=== PATIENT | female | born 1990 | race Caucasian/White ===

== ENCOUNTER 2023-02-11 21:10 | Emergency (ER) | payer OTHER ==
[~2023-02-11] VITALS: Ht 152.4 cm; Wt 79.4 kg
[2023-02-12 00:30] VITALS: BP 141/85
== END 2023-02-12 01:27 | disposition home or self-care (01) ==
LOC: ER 21:10
DX: T14.8XXA Other injury of unspecified body region, initial encounter (principal); Z88.2 Allergy status to sulfonamides; Z91.013 Allergy to seafood; Z88.5 Allergy status to narcotic agent; Z88.0 Allergy status to penicillin; Z88.4 Allergy status to anesthetic agent; Z88.8 Allergy status to other drugs, medicaments and biological substances; V89.2XXA Person injured in unspecified motor-vehicle accident, traffic, initial encounter
CPT/HCPCS: 99283; A9270

== ENCOUNTER → 2024-07-14 | Outpatient (CLI) | payer OTHER ==
[2024-07-14 20:49] LABS: Candida Group, PCR NOT DETECTED (NOT DETECT)
[2024-07-14 20:50] LABS: Bacterial Vaginosis PCR Positive (NEGATIVE); Candida glabrata-krusei, PCR DETECTED (NOT DETECT)
== END ==
LOC: LAB SHORT 17:57 → LAB 17:57
PROVIDERS: Obstetrics & Gynecology
DX: N89.8 Other specified noninflammatory disorders of vagina (principal)
CPT/HCPCS: 87481; 87661; 87801

== ENCOUNTER → 2024-08-23 | Outpatient (CLI) | payer OTHER ==
[2024-08-23 20:20] LABS: Bacterial Vaginosis PCR Negative (NEGATIVE); Candida Group, PCR NOT DETECTED (NOT DETECT); Candida glabrata-krusei, PCR NOT DETECTED (NOT DETECT)
== END | disposition home or self-care (01) ==
LOC: LAB 15:48 → LAB SHORT 15:48
PROVIDERS: Advanced Practice Midwife
DX: Z01.419 Encounter for gynecological examination (general) (routine) without abnormal findings (principal); N76.0 Acute vaginitis
CPT/HCPCS: 87481; 87661; 87801

== ENCOUNTER → 2024-11-01 | Outpatient (CLI) | payer OTHER | END | disposition home or self-care (01) | LOC: LAB 07:36 → LAB SHORT 07:36 → PLD 07:36 | DX: R87.810 Cervical high risk human papillomavirus (HPV) DNA test positive (principal) | CPT/HCPCS: 88305 ==

== ENCOUNTER 2025-01-15 11:17 | Day surgery (SDC) | payer OTHER ==
[2025-01-15] VITALS (13 sets, daily range): BP systolic 103–145; BP diastolic 60–93
[~2025-01-15] VITALS: Ht 152.4 cm; Wt 101.2 kg
[~2025-01-15 11:17] MED LIST: ALBU90OI INH; ASPI325 PO; BUSPIRONE HCL10 M1 PO; CYMBALTA30 MG PO; CeFAZolin Sodium 2,000 MG in NS 100 ML IV SCH; Dexamethasone Sod Phos 10 MG/ML 1ML VIAL ONE; FAMO10 PO; FLUT1DIS2 INH; FentaNYL Citrate 50 MCG/ML 2 ML Injection ONE; Ketorolac Tromethamine 30mg Vial ONE; Lactated Ringer's 1,000 ML IV SCH; MIRTAZAPINE7.5 M1 PO; MONT10T PO; NAPR500 PO; Ondansetron HCl 2 MG / ML 2ML Vial ONE; Rocuronium Bromide 10 MG/ML 5ML Injection IV ONE; Sugammadex Sodium 200 MG/2ML SDV (100 MG/ML) ONE; TIOT18 INH; TRAM50 PO; propofoL 20 ML IV ONE
[2025-01-15] MEDS ORDERED: Ondansetron HCl 2 MG / ML 2ML Vial IV PRN ×2 (11:45→16:35)
[2025-01-15] MEDS ORDERED: Lidocaine HCl 1% 5 ML SYR INJ ONE (11:50)
[2025-01-15] MEDS ORDERED: Midazolam HCl 1MG / ML 2ML Vial IV PRN (11:50)
[2025-01-15] MEDS ORDERED: Droperidol 5 mg/2 ml Vial IV PRN (11:50)
[2025-01-15] MEDS ORDERED: Metoclopramide HCl 5MG / ML 2ML Vial IV PRN (11:50)
[2025-01-15] MEDS ORDERED: FentaNYL Citrate 50 MCG/ML 2 ML Injection IV PRN ×4 (11:50→16:40)
[2025-01-15] MEDS ORDERED: HYDROmorphone HCl/Pf 1MG SYR IV PRN (11:50)
[2025-01-15] MEDS ORDERED: Scopolamine Hydrobromide Patch TOP SCH (11:55)
[2025-01-15] MEDS ORDERED: Bupivacaine 0.5% HCl 5 MG/ML 30MLVIAL ONE (12:05)
--- NOTE | 2025-01-15 12:23 | NUR ---
History, Chart, Medications and Allergies reviewed before start of procedure. Pre-Op teaching done. Pt verbalizes understanding. Patient States Post-Procedure ride home has been arranged. PATIENT BELONGINGS AND GLASSES WITH PTS PARENTS AT THE BEDSIDE.
[2025-01-15] MEDS ORDERED: Rocuronium Bromide 10 MG/ML 5ML Injection IV ONE (13:17)
--- NOTE | 2025-01-15 15:38 | NUR ---
ARRIVAL TO UNIT AFTER RECEIVING REPORT FROM [employer] ATTENDANT, PATIENT TRANSFERRED TO UNIT AT APPROX 1515. PATIENT ALERT - ABLE TO STAND AND TRANSFER TO RESTROOM TO ATTEMPT TO VOID. UNABLE TO VOID AT THIS TIME. S/P LAP HYSTER - X4 LAP SITES WITH WOUND GLUE C/D/I. REPORTS MINIMAL PAIN AT THIS TIME - KPAD IN PLACE. DENIES N/V - SMALL SNACKS WITHIN REACH. IVF INFUSING TO GRAVITY. MOM AT BEDSIDE. CALL LIGHT IN REACH.
[2025-01-15] MEDS ORDERED: TraMADol HCl 50 MG Tab PO PRN (16:35)
[2025-01-15] MEDS ORDERED: Simethicone 80 MG Chew PO PRN (16:35)
[2025-01-15] MEDS ORDERED: DiphenhydrAMINE HCL 25 MG Cap PO PRN (16:35)
[2025-01-15] MEDS ORDERED: Ibuprofen 400 MG Tab PO PRN (16:40)
[2025-01-15] MEDS ORDERED: Metoclopramide HCl 10 MG Tab PO PRN (16:40)
--- NOTE | 2025-01-15 17:30 | NUR ---
SHIFT SUMMARY NO ACUTE CHANGES SINCE ARRIVAL TO UNIT. PATIENT REMAINS ALERT AND ORIENTED X4. COMMUNICATES NEEDS EFFECTIVELY. VSS. S/P LAP HYSTER. X4 LAP SITES W/ MINIMAL OOZING - X2 BANDAIDS PLACED. MANAGING PAIN PER EMAR AND WITH KPAD. DENIES N/V - TOLERATING PO INTAKE. VOIDING. UP WITH SBA TO RESTROOM. MD MURCIA AT BEDSIDE THIS EVENING - PATIENT ABLE TO DC HOME TODAY IF CHOOSING TO. AWAITING PATIENT DECISION. MOM AT BEDSIDE. CALL LIGHT IN REACH.
[2025-01-15] MEDS ORDERED: Ketorolac Tromethamine 30mg Vial IV SCH (18:00)
[2025-01-15] MEDS ORDERED: BusPIRone HCl 10 MG Tab PO SCH (20:55)
[2025-01-15] MEDS ORDERED: Famotidine 20 MG Tab PO SCH (20:55)
[2025-01-15] MEDS ORDERED: DULoxetine HCL 60 MG Capsule DR PO SCH (20:55)
--- NOTE | 2025-01-15 20:56 | NUR ---
POST-OP PATIENT HAS X4 LAP SITES TWO SITES ARE C/D/I, TWO SITES ARE SLIGHTLY OOZING S/S/ DRNG. BANDAID PRN. IV SL, PATIENT REPORTS BLOATING AND ABD PAIN, WILL MEDICATE PRN, PER EMAR. EDUCATED PATIENT ON AMBULATING TO RELIEVE GAS PAIN. VSS, LUNG SOUNDS WNL. VOIDING FREQUENTLY. TOLERATING PO INTAKE. LORI PAD IS CLEAN. K-PAD TO ABD AND SCDS TO BLE. PATIENT IS INDEP TO THE BATHROOM. CALL LIGHT IN REACH.
[2025-01-15] MEDS ORDERED: Montelukast Sodium 10 MG Tab PO SCH (21:00)
[2025-01-15] MEDS ORDERED: Mirtazapine 15 MG Tab PO SCH (21:00)
[2025-01-16] MEDS ORDERED: Acetaminophen 500 MG Tab PO SCH
--- NOTE | 2025-01-16 04:26 | NUR ---
SHIFT SUMMARY PATIENT IS AOX4, ABLE TO MAKE NEEDS KNOWN. LAPS SITES WITH STERI STRIPS WITH S/S DRIED DRNG. PATIENT MEDICATED FOR PAIN PER EMAR. VSS, VOIDNG. TOLERATING PO INTAKE. DENIES N/V. VSS, CALL LIGHT IN REACH.
[2025-01-16 05:26] VITALS: BP 113/69
[2025-01-16 07:13] VITALS: BP 104/64
--- NOTE | 2025-01-16 07:46 | NUR ---
pt watching tv CALL LIGHT IN REACH. RESTING IN BED, RATES PAIN 7/10. LCA. HRR. BTX4. ABD SLIGHTLY DISTENDED. LAP INCISIONS X4 TO ABD W/TISS ADHESIVE. FAR LEFT LAP SITE HAS DRIED BLOODY DRAINAGE NOTED. PT REPORTS VERY LITTLE VAGINAL BLEEDING.
[2025-01-16] MEDS ORDERED: Ibuprofen 400 MG Tab PO PRN (08:00)
[2025-01-16 10:16] VITALS: BP 100/62
[2025-01-16] MEDS ORDERED: ACET500 PO (10:23)
[2025-01-16] MEDS ORDERED: BENADRYL25 MG PO (10:23)
[2025-01-16] MEDS ORDERED: SIME80CH PO (10:24)
--- NOTE | 2025-01-16 10:43 | NUR ---
DISCHARGED VSS. PAIN TOLERABLE. TOLERATING PO AND VOIDING. GETTING UP INDEPENDENTLY. REVIEWED DC INSTRUCTIONS W/PT; VERBALIZED UNDERSTANDING. DC'D IV, CATHETER INTACT. PT LEFT UNIT IN WC W/POSSESSIONS AND DC PAPERWORK IN HAND ACCOMPANIED BY FAMILY.
== END 2025-01-16 10:35 | disposition home or self-care (01) ==
LOC: ORSCMMR 11:17 → ORD 12:30 → ORSCMMR 12:30 → SURS 15:13 → ORSCMMR 01-16 10:35
PROVIDERS: Obstetrics & Gynecology
PROC: 0UT7FZZ Resection of Bilateral Fallopian Tubes, Via Natural or Artificial Opening With Percutaneous Endoscopic Assistance (ICD-10-PCS; principal; 2025-01-15 12:30)
PROC: 0UT9FZZ Resection of Uterus, Via Natural or Artificial Opening With Percutaneous Endoscopic Assistance (ICD-10-PCS; principal; 2025-01-15 12:30)
DX: N93.9 Abnormal uterine and vaginal bleeding, unspecified (principal); D50.0 Iron deficiency anemia secondary to blood loss (chronic); D25.2 Subserosal leiomyoma of uterus; N80.00 Endometriosis of the uterus, unspecified; J45.909 Unspecified asthma, uncomplicated; K21.9 Gastro-esophageal reflux disease without esophagitis; E66.01 Morbid (severe) obesity due to excess calories; Z68.41 Body mass index [BMI] 40.0-44.9, adult; F41.9 Anxiety disorder, unspecified; F32.A Depression, unspecified; Z79.899 Other long term (current) drug therapy
CPT/HCPCS: 86850; 86900; 86901; 88307; A9270; J0690; J1100; J1885; J2250; J2405; J2704; J3010; J7120